=== PATIENT | female | born 2000 | race Caucasian/White ===

== ENCOUNTER 2024-02-08 10:11 | Outpatient (CLI) | payer OTHER, SELFPAY | END 2024-02-08 10:12 | disposition home or self-care (01) | LOC: NFLDREF 02-11 10:13 | PROVIDERS: Visit Provider Physician Assistant | DX: K92.1 Melena (principal) | CPT/HCPCS: 87045; 87046; 87427 ==

== ENCOUNTER 2024-06-30 20:49 | Emergency (ER) | payer OTHER, SELFPAY ==
--- OUTSIDE RECORDS SUMMARY | 2024-06-30 20:51 | XMS_ITS | Encounter Summary ---
Author Organization [facility] Address [address] [place] [address] Care Team Providers Care Crime Laboratory Analyst Name Role Phone Brandy Oakes PA-C Unavailable No Ref-Primary, Physician Primary Care Provider Kenroy Tello MD Unavailable Claudine Whittington PhD Unavailable Encounter Details Date Type Department Care Team ([facility] st Contact Info) Description 03/27/2021 Telephone [facility] Behavioral Health Intake [address] [place] [phone] Generic, Behavioral Intake, Social History Tobacco Use Types Packs/Day Years Used Date Smoking Tobacco: Never Smokeless Tobacco: Never Alcohol Use Standard Drinks/Week Comments No 0 (1 standard drink = 0.6 oz pur e alcohol) PHQ-2 Answer Date Recorded PHQ-2 Score 0 03/30/2021 Comments No Sex and Gender Information Value Date Recorded Sex Assigned at Female 03/26/2021 2:38 PM APPLICATIONS SUPPORT ANALYST Legal Sex Female 7:15 AM CDT Gender Identity Female 03/26/2021 2:38 PM APPLICATIONS SUPPORT ANALYST Sexual Orientation Straight 04/08/2021 8: 40 AM APPLICATIONS SUPPORT ANALYST COVID-19 Exposure Response Date Recorded In the last month, have you been in contact with someone who was confirmed or suspected to have Coronavirus / COVID-19? No / Unsure 03/30/2021 8:42 AM APPLICATIONS SUPPORT ANALYST documented as of this encounter Miscellaneous Notes * Telephone Encounter - Rodriguez Sinclair - 04/08/2021 8:00 AM CST Tried reaching out to patient to check them in for their virtual MH eval today, 04/08/2021 at 0830. Called their mobile number twice, but no answer and their voicemail box is full. Called their home number, their mom answered and said she'll try to wake patient up if chart writer will call patient again. Called patient's mobile number again, but no answer. ICATIONS SUPPORT ANALYST * Telephone Encounter - Yohan Randall - 03/27/2021 8:32 AM CST Pt scheduled MH eval through [employer]. Referral created and benefits requested. ICATIONS SUPPORT ANALYST documented in this encounter Plan of Treatment Not on file documented as of this encounter Visit Diagnoses Not on filedocumented in this encounter Care Teams Crime Laboratory Analyst Relationship Specialty Start Date End Date No Ref-Primary, Physician PCP - General 10/29/20 Brandy Oakes PA-C [address] [place] [address] [address] [place] [facility] [place] [address] Physician Process Inspector Dermatology 10/29/20 Kenroy Tello MD Assigned Surgical Provider 04/05/21 [place] [id number] [place] [address] Assigned Behavioral Health Provider 08/22/21 05/12/23 documented as of this encounter
--- OUTSIDE RECORDS SUMMARY | 2024-06-30 20:51 | XMS_ITS | Clinical Summary ---
Author Organization [facility] Address [address] [place] [address] Care Team Providers Care Meat Lugger Name Role Phone Unavailable Primary Care Provider Unavailabl e Source Comments You are receiving this document as you are listed as the primary care provider,follow-up provider, or the patient has been referred to you for consultation.This is in compliance with the Medicare andMedicaid EHR Incentive Program,which states Providers who transition their patient to another setting of careor provider of care or refers their patient to another provider of care shouldprovide summary care record for each transition of care or referral. [facility] Allergies No known active allergies Medications No known medications Active Problems Problem Noted Date Diagnosed Date Patellofemoral arthralgia of both knees 10/07/19 21 Greater trochanteric bursitis of both hips 10/06 Congenital dysplasia of both hips 10/06/2020 Social History Tobacco Use Types Packs/Day Years Used Date Smoking Tobacco: Never Assessed Comments Unknown Sex and Gender Information Value Date Recorded Sex Assigned at Not on file Legal Sex Female 6:00 AM CDT Gender Identity Not on file Sexual Orientation Not on file Plan of Treatment Health Maintenance Due Date Last Done Comments Cervical Cancer Screening Due 2002 Chlamydia 2002 Hep C Screening (Preventive Services) 2002 MenB Immunization Discussion 2002 HIV Screening (Preventive Services) 2018 HPV Vaccine (2 - 3-dose series) 12/13/2018 11/15/2018 Adult Preventive Visit 02/02/2020 HepB (1) 2021 COVID-19 Vaccine ( season) 2023 07/25/2020, 06/27/2020 Influenza (#1) 2023 01/28/2014 DTaP/Tdap/Td (7 - Tdap) 01/29/2024 01/29/20 14, 08/18/2007, 05/08/2003, Additional history exists Zoster/Shingles (1 of 2) 02/02/2052 Hib Completed 05/08/2003, 01/20, 2002, Additional history exists Pneumococcal Aged Out 08/07/2003, 07/20, 2002, Additional history exists No longer eligible based on patient's age to complete this topic IPV (Polio) Completed 11/21/2007, 07/20, 2002, Additional history exists MCV4 Completed 06/06/2019, 09/17/2014 HepA Aged Out No longer eligi ble based on patient's age to complete this topic Insurance MEDICA
--- OUTSIDE RECORDS SUMMARY | 2024-06-30 20:51 | XMS_ITS | Clinical Summary ---
Author Organization [facility] Address [address] [place] [address] Care Team Providers Care Salvage Engineering Technician Name Role Phone [facility] Primary Care Provider + Allergies Active Allergy Reactions Criticality Noted Date Comments Peanut *Unknown 11/26/2016 Medications clindamycin 1% (CLEOCIN-T) 1 % lotion APPLY TOPICALLY TO FACE IN THE MORNING 1 Active tretinoin (RETIN-A) 0.025 % 0.025 % cream APPLY A PEA-SIZED AMOUNT TO FACE. START EVERY 3 TO 4 DAYS WORKING UP TO EVERY NIGHT 1 Active benzoyl peroxide 5% 5 % external liquid WASH FACE ONCE A DAY IN THE SHOWER 1 Active Ciclopirox 1 % sham APPLY THREE TIMES WEEKLY TO SCALP. LET SIT FOR 5 MINUTES THEN RINSE 2 Active cetirizine (ZYRTEC) 10 mg tablet Take 10 mg by mouth. Active clobetasol 0.05% TOPICAL (TEMOVATE) 0.05 % external solution 2 Active albuterol HFA (PRO-AIR; VENTOLIN; PROVENTIL) 90 mcg/actuation inhaler Inhale 1-2 Puffs by mouth every 4 hours if needed. 3 Each 3 2 Active ondansetron (ZOFRAN) 8 mg tabletIndicatio ns:Lack of appetite Take 1 Tablet (8 mg) by mouth every 8 hours if needed for Nausea/Vomitin g. 30 Tablet 2 Active Active Problems Problem Noted Date Diagnosed Date Mild intermittent asthma without complication Immunizations Immunization Administration Dates Next Due DTaP 08/18/2007, 4,2002,06/05,2002 HIB PRP-T (ActHIB,Hiberix) 05/08/2003,,2002,04/03 HPV 9 (Gardasil 9) 11/15/2018 Hepatitis B (Peds) 2002,2002, 002 Inactivated Polio Vaccine 11/21/2007,,2002,04/03 Influenza,LAIV3 Live Intrana adalgisa (Flumist) 01/28/2014 MENINGOCOCCAL VACCINE 2 VIAL 2MO-55YO (MENVEO) 06/06/2019,09/17/2014 MMR 08/18/2007,02/06/2003 Pneumococcal conj 7-Valent (Prevnar 7) 0 08/07/2003,2002,2002,04/03 Tdap 01/28/2014 Family History Medical History Relation Name Comments Anxiety disorder Father Relation Name Status Comments Father Social History Tobacco Use Types Packs/Day Years Used Date Smoking Tobacco: Never Smokeless Tobacco: Never Tobacco Cessation:Counseling Given: Yes Alcohol Use Standard Drinks/Week Comments Never 0 (1 standard drink = 0.6 oz pur e alcohol) PHQ-2 Answer Date Recorded PHQ-2 TOTAL SCORE 2 02/23/2021 Social Connections Answer Date Recorded Frequency of Communication with Friends and Fami ly Not on file 03/21/2021 Financial Resource Strain Answer Date R ecorded Difficulty of Paying Living Expenses Not on file 03/21/2021 Difficulty of Paying Living Expenses Not on file 03/21/2021 Comments No Sex and Gender Information Value Date Recorded Sex Assigned at Not on file Legal Sex Female 10:43 AM GREENHOUSE GROWER Gender Identity Not on file Sexual Orientation Not on file Obstetrics History Last Filed Vital Signs Vital Sign Reading Time Taken Comments Blood Pressure 112/68 08/19/2021 9:24 AM CDT Pulse 110 08/19/2021 9:24 AM CDT Temperature 38.1 C (100.5 F) 08/19/2021 9:24 AM CDT Respiratory Rate - - Oxygen Saturation 94% 08/19/2021 9:24 AM CDT Inhaled Oxygen Concentration - - Weight 64.8 kg (142 lb 12.8 oz) 08/19/2021 9:24 AM CDT Height 162 cm (5' 3.78) 08/19/2021 9:24 AM CDT Body Mass Index 24.68 08/19/2021 9:24 AM CDT Plan of Treatment Health Maintenance Due Date Last Done Comments HIV for age 15-65 2017 HPV series for age 9-26 (2 - 3-dose series) 12/13/2018 11/15/2018 Hepatitis C screening for age 18-79 02/02/2020 Depression screening for age 12+ 02/23/2022 02/23/2021 BMI (ht and wt on same day) for age 18+ 08/19/2022 08/19/2021 Pap test for age 21-65 2023 COVID-19 vaccine series ( season) 2023 02/09/2021, 07/25/2020, 06/27/2020 Tetanus booster 01/29/2024 01/28/2014 Influenza Vaccine (Season Ended) 2024 01/28/2014 Pneumococcal series for age 6-49 Aged Out 08/07/2003, 2002, 2002, Additional history exists No longer eligible based on patient's age to complete this topic Tdap Completed 01/28/2014 Insurance MEDICA CHOICE Care Teams Salvage Engineering Technician Relationship Specialty Start Date End Date [facility] [address] [place] [address] PCP - General 08/21/21
--- OUTSIDE RECORDS SUMMARY | 2024-06-30 20:51 | XMS_ITS | Clinical Summary ---
Author Organization [facility] Address [address] [place] [address] Care Team Providers Care Optomechanical Engineer Name Role Phone Brandy Oakes PA-C Unavailable No Ref-Primary, Physician Primary Care Provider Allergies Active Allergy Reactions Criticality Noted Date Comments Nuts 11/26/2016 Medications * This document contains information received from the source organization and may not represent a complete record from that organization. albuterol (2.5 MG/3ML) 0.083% neb solution 7 Active PULMICORT FLEXHALER 90 MCG/ACT AEPB 7 Active QVAR 80 MCG/ACT Inhaler 7 Active cetirizine (ZYRTEC) 10 MG tablet Take 10 mg by mouth daily Active tretinoin (RETIN-A) 0.025 % external creamIndication s:Acne vulgaris Apply a pea-sized amount to face. Start every 3-4 nights working up to every night. 45 g 3 1 Active fluocinonide (LIDEX) 0.05 % external solutionIndicat ions:Seborrheic dermatitis Apply to affected area on scalp BID x 4-6 weeks, tapering with improvement. Do not apply to face or body folds. 60 mL 1 Active Additional Information Patient not taking.Reported on 03/30/2021 ketoconazole (NIZORAL) 2 % external shampooIndicati ons:Seborrheic dermatitis,Sebo psoriasis Lather onto scalp in shower daily at let sit for 1-2 minutes before rinsing. 120 mL 11 2 Active Fluocinolone Acetonide Scalp 0.01 % OIL oilIndications: Seborrheic dermatitis,Sebo psoriasis Apply once daily as needed to scalp at nighttime before bed 118 mL 11 2 Active clindamycin (CLEOCIN T) 1 % external lotionIndicatio ns:Acne vulgaris Apply to face in the am. 60 mL 2 Active benzoyl peroxide (BENZOYL PEROXIDE WASH) 5 % external liquidIndicatio ns:Acne vulgaris Wash face once a day in the shower. 226 g 2 Active Active Problems Problem Noted Date Diagnosed Date JASMYNE (generalized anxiety disorder) 04/08/2021 Attention and concentration deficit 04/08/2021 Dermatitis- sclerosis of Lt elbow 11/27/2016 Bug bites, initial encounter: post neck and ant waistline 11/27/2016 Blister of left heel, initial encounter 11/28/19 17 Mild intermittent asthma without complication Immunizations Name Administration Dates Next Due COVID-19 12+ (Pfizer) 12/29/2023,03/09/2023 COVID-19 Bivalent 18+ (Moderna) 03/01/2022 DTAP (<7y) 08/18/2007, 4,2002,06/05,2002 HIB (PRP-T) 05/08/2003, 3,2002,04/03 HPV9 (Gardasil) 11/03/2020,11/15/2018 Hepatitis B, Peds (Engerix-B/Recombivax HB) 2002,2002,2002 Influenza Intranasal Vaccine 01/28/2014 Influenza Vaccine >6 months,quad, PF 03/09/2023, 03/11/2022 MMR (MMRII) 08/18/2007,02/06/2003 Meningococcal ACWY (Menveo ) 06/06/2019,09/17/2014 Meningococcal Mcv4 Conjugate,unspecified 06/06/2019 Pneumococcal (PCV 7) 08/07/2003,08/08/19 03,2002,04/03 Poliovirus, inactivated (IPV) 11/21/2007 ,2002,2002,04/03 TDAP Vaccine (Adacel) 01/28/2014 Varicella (Varivax) 10/31/2009,08/18/2007 Family History Medical History Relation Comments Anxiety Disorder Father Depression Father Unknown/Adopted Father Unknown/Adopted Mother Anesthesia Reaction No family hx of Asthma No family hx of Breast Cancer No family hx of Cerebrovascular Disease No family hx of Colon Cancer No family hx of Coronary Artery Disease No family hx of Diabetes No family hx of Genetic Disorder No family hx of Hyperlipidemia No family hx of Hypertension No family hx of Mental Illness No family hx of Obesity No family hx of Osteoporosis No family hx of Other Cancer No family hx of Prostate Cancer No family hx of Substance Abuse No family hx of Thyroid Disease No family hx of Relation Status Comments Father Alive Mother Alive Social History Tobacco Use Types Packs/Day Years Used Date Smoking Tobacco: Never Smokeless Tobacco: Never Tobacco Cessation:Counseling Given: No Alcohol Use Standard Drinks/Week Comments No 0 (1 standard drink = 0.6 oz pur e alcohol) PHQ-2 Answer Date Recorded PHQ-2 Score 4 11/02/2021 Adolescent Education Answer Date Record ed Getting School Help Needed Not on file 12/10 Comments No Sex and Gender Information Value Date Recorded Sex Assigned at Female 03/26/2021 2:38 PM DIRECTOR OF PRECLINICAL RESEARCH Legal Sex Female 7:15 AM CDT Gender Identity Female 03/26/2021 2:38 PM DIRECTOR OF PRECLINICAL RESEARCH Sexual Orientation Straight 04/08/2021 8: 40 AM DIRECTOR OF PRECLINICAL RESEARCH Last Filed Vital Signs Vital Sign Reading Time Taken Comments Blood Pressure 106/58 10/31/2020 3:03 PM CDT Pulse 103 11/26/2016 4:05 PM CDT Temperature 36.6 C (97.8 F) 11/26/2016 4:05 PM CDT Respiratory Rate 24 11/26/2016 4:05 PM CDT Oxygen Saturation 98% 11/26/2016 4:05 PM CDT Inhaled Oxygen Concentration - - Weight 55.3 kg (122 lb) 11/26/2016 4:05 PM CDT Height 160 cm (5' 3) 11/26/2016 4:05 PM CDT Body Mass Index 21.61 11/26/2016 4:05 PM CDT Plan of Treatment Health Maintenance Due Date Last Done Comments ADVANCE CARE PLANNING 2002 ANNUAL REVIEW OF HM ORDERS 2002 DEPRESSION ACTION PLAN 2002 HIV SCREENING 2017 ASTHMA CONTROL TEST 05/26/2017 11/26/2016 ASTHMA ACTION PLAN 11/26/2017 11/26/2016, 0 11/26/2016, 11/26/2016 MENINGITIS B IMMUNIZATION (1 of 2 - Standard) 2018 HEPATITIS C SCREENING 02/02/2020 HPV IMMUNIZATION (3 - 3-dose series) 01/26/2021 11/03/2020, 11/15/2018 Pneumococcal Vaccine: Pediat rics (0 to 5 Years) and At-Risk Patients (6 to 49 Years) (1 of 2 - PCV) 2021 08/07/2003, 2002, 2002, Additional history exists PHQ-9 05/05/2022 11/02/2021, 07/21, 04/08/2021 INFLUENZA VACCINE (#1) 2023 , 03/11/2022, 01/28/2014 DTAP/TDAP/TD IMMUNIZATION (7 - Td or Tdap) 01/29/2024 01/28/2014, 08/18/2007, 05/08/2003, Additional history exists YEARLY PREVENTIVE VISIT 03/16/2025 03/16/20 24, 09/15/2022, 06/06/2019, Additional history exists PAP 03/16/2027 03/16/2024 ZOSTER IMMUNIZATION (1 of 2) 02/02/2052 HEPATITIS B IMMUNIZATION Completed 003, 2002, 2002 MENINGITIS IMMUNIZATION Completed 06/06/19 20, 06/06/2019, 09/17/2014 COVID-19 Vaccine Completed 12/29/2023, , 03/01/2022, Additional history exists Procedures Procedure Name Priority Date/Time Associated Diagnosis Comments ASTHMA ACTION PLAN Routine 11/26/2016 4:09 PM CDT from Last 3 Months or Most Recently Relevant to Health Maintenance Insurance [employer] VANTAGE PLUS SELF INSURED [employer] V[employer] PLUS SELF INSURED [employer] V[employer]US SELF INSURED [employer] V[employer] [place] [place] [address] Care Teams Optomechanical Engineer Relationship Specialty Start Date End Date No Ref-Primary, Physician PCP - General 10/29/20 Brandy Oakes PA-C [address] [place] [address] [address] [place] [place] [phone] Physician Agricultural Sales Representative Dermatology 10/29/20
--- OUTSIDE RECORDS SUMMARY | 2024-06-30 20:51 | XMS_ITS | Encounter Summary ---
Author Organization [facility] Address [address] [place] [address] Care Team Providers Care Us Marketing Director Name Role Phone Brandy Oakes PA-C Unavailable No Ref-Primary, Physician Primary Care Provider Kenroy Tello MD Unavailable Claudine Whittington PhD Unavailable Encounter Details Date Type Department Care Team ([facility] st Contact Info) Description 11/02/2021 [facility] Medical Advice [facility] Behavioral Health Intake [address] [place] [phone] Sara Pillai Social History Tobacco Use Types Packs/Day Years Used Date Smoking Tobacco: Never Smokeless Tobacco: Never Alcohol Use Standard Drinks/Week Comments No 0 (1 standard drink = 0.6 oz pur e alcohol) PHQ-2 Answer Date Recorded PHQ-2 Score 4 11/02/2021 Comments No Sex and Gender Information Value Date Recorded Sex Assigned at Female 03/26/2021 2:38 PM BALLPOINT PENS ASSEMBLER Legal Sex Female 7:15 AM CDT Gender Identity Female 03/26/2021 2:38 PM BALLPOINT PENS ASSEMBLER Sexual Orientation Straight 04/08/2021 8: 40 AM BALLPOINT PENS ASSEMBLER documented as of this encounter Plan of Treatment Not on file documented as of this encounter Visit Diagnoses Not on filedocumented in this encounter Additional Health Concerns Assessment Noted Time PHQ-9 Depression Total Score: 17 022 8:47 AM CDT documented as of this encounter Care Teams Us Marketing Director Relationship Specialty Start Date End Date No Ref-Primary, Physician PCP - General 10/29/20 Brandy Oakes PA-C [address] [place] [address] [place] [address] Physician Pluck Trimmer Dermatology 10/29/20 Kenroy Tello MD Assigned Surgical Provider 04/05/21 [place] [address] [place] [address] Assigned Behavioral Health Provider 08/22/21 05/12/23 documented as of this encounter
[2024-06-30 21:04] VITALS: BP 124/78; PULSE 109; RESP 16; TEMP 36.6; O2SAT 100; BMI 26.6
[2024-06-30 21:15] LABS: Appearance Urine Clear (Clear); Bilirubin Urine Negative (Negative); Blood Urine Negative (Negative); Color Urine Yellow (Yellow); Glucose Urine Negative (Negative); Ketones Urine Negative (Negative); Leukocyte Esterase Urine Negative (Negative); Nitrite Urine Negative (Negative); Protein Urine Negative (Negative); Specific Gravity Urine 1.015 (1.000-1.030); Urobilinogen Urine 0.2 (0.2-1.0)
[2024-06-30 21:27] LABS: Amorphous Sediment Urine Few; Bacteria Urine Few; RBC Urine 0-2 (0-2); Squamous Epithelial Cell Urine Few (None-Few)
--- NOTE | 2024-06-30 21:29 | ED.ABDPAIN ---
HPI - Abdominal Pain General Date Seen: 06/30/24 Chief Complaint: Abdominal Pain Stated Complaint: Abdominal Time Seen by Provider: 06/30/24 21:08 Source: patient Mode of arrival: ambulatory Limitations: no limitations History of Present Illness HPI narrative: patient is a 24-year-old female presenting to the emergency department for intermittent epigastric pain. She states the symptoms started about 15:00 today and seem to come and go. She states she is currently asymptomatic. When they occur and she states there is sharp pain associated with nausea. She states she will feel very weak during these episodes. Symptoms then resolved and she feels back to normal. No previous abdominal surgeries. Not aware of any sick contacts. Denies fevers or chills. Denies chest pain, shortness of breath, dizziness. States she feels lightheaded during these episodes. had a normal bowel movement about 2 or 3 hours ago she states. Has not had any associated constipation diarrhea. Denies symptoms like this before. Denies dysuria, vaginal discharge, vaginal bleeding. No other concerns noted. Related Data Home Medications ?Medication ?Instructions ?Recorded ?Confirmed duloxetine 40 mg capsule,delayed 40 mg PO DAILY 02/07/24 06/30/24 release guanfacine 1 mg tablet,extended 1 mg PO DAILY 02/07/24 06/30/24 release 24 hr Allergies Allergy/AdvReac Type Severity Reaction Status Date / Time No Known Drug Allergies Allergy Verified 02/07/24 16:03 Review of Systems Status of ROS Reports: 10 or more systems reviewed and unremarkable except as noted in History and below Exam Narrative: Exam Narrative: Const: Well-nourished, Well-developed, in No distress Eyes: PERRL, no conjunctival injection, and symmetrical lids HENT: Atraumatic external nose and ears. Moist mucous membranes. Neck: Symmetric, trachea midline, No thyromegaly. CVS: RRR, No murmurs or gallops. Peripheral pulses 2+ and equal in all extremities RESP: Unlabored respiratory effort. Clear to auscultation bilaterally. GI: Nontender/Nondistended, No rebound or guarding. MSK:Extremities w/o deformity, Normal Active ROM Skin: Warm, Dry. No rashes or lesions. Neuro: Normal Muscle tone, No focal neurological deficits. Psych: Awake, Alert, & Oriented x3. Appropriate mood and affect. Const: Vital Signs, click to edit/add: Vital Signs - 24 hr 06/30/24 21:04 Temperature 98 F Pulse Rate [Pulse Oximeter] 109 H Respiratory Rate 16 Blood Pressure [Ri ght Upper Arm] 124/78 Pulse Oximetry 100 Oxygen Delivery Me thod Room Air Course Vital Signs Vital signs: Initial Vital Signs Temperature 98 F 06/30/24 21:04 Temperature Source Temporal Artery Scan 06/30/24 21:04 Pulse Rate 109 H 06/30/24 21:04 Respiratory Rate 16 06/30/24 21:04 Blood Pressure 124/78 06/30/24 21:04 Blood Pressure Mean 93 06/30/24 21:04 Blood Pressure Position Sitting 06/30/24 21:04 Pulse Oximetry 100 06/30/24 21:04 Oxygen Delivery Method Room Air 06/30/24 21:04 Vital Signs Temperature 98 F 06/30/24 21:04 Pulse Rate 109 H 06/30/24 21:04 Respiratory Rate 16 06/30/24 21:04 Blood Pressure 124/78 06/30/24 21:04 Pulse Oximetry 100 06/30/24 21:04 Oxygen Delivery Method Room Air 06/30/24 21:04 Temperature 98 F 06/30/24 21:04 Pulse Rate 109 H 06/30/24 21:04 Respiratory Rate 16 06/30/24 21:04 Blood Pressure 124/78 06/30/24 21:04 Pulse Oximetry 100 06/30/24 21:04 Oxygen Delivery Method Room Air 06/30/24 21:04 MDM - Abdominal Pain MDM Narrative Medical decision making narrative: patient is a 22-year-old female presenting to the emergency department for abdominal pain. Pain is in epigastric region so differential this time with close gastroenteritis, peptic ulcer disease, pancreatitis. Seems much less likely to be diverticulitis appendicitis due to location of pain. Will check LFTs though for possible liver gallbladder dysfunction. CBC, CMP, lipase, urinalysis, COVID/ flu / RSV, urine test all ordered. She is asymptomatic at this time and medications not necessary. I believe CT scan is necessary as would be unnecessary radiation for patient of this age considering her otherwise benign symptoms currently. lab work returned showing no concerning abnormalities. Patient continues to be asymptomatic. Symptoms are likely related to a gastroenteritis. She is otherwise doing well at this time. I do believe she is safe for discharge I will prescribe her some Zofran be instymeds. She is agreeable to this plan. Lab Data Labs: Lab Results 06/30/24 06/30/24 06/30/24 Range/Units 21:10 22:13 22:24 WBC 11.12 H (4.50-11.00) K/uL RBC 5.41 H (4.00-5.20) m/uL Hgb 13.7 (12.0-16.0) gm/dL Hct 42.5 (33.0-51.0) % MCV 79 L (80-100) fL MCH 25 L (26-34) pg MCHC 32 (32-36) gm/dL RDW Coeff of Denny 13.2 (11.5-15.5) % Plt Count 267 (140-440) K/uL Neut % (Auto) 80.4 H (42.0-72.0) % Lymph % (Auto) 11.5 L (20-44) % Rawlins % (Auto) 7.2 (0.0-11.0) % Eos % (Auto) 0.4 (0.0-7.0) % Baso % (Auto) 0.3 (0.0-3.0) % Neut # (Auto) 8.90 H (1.7-7.0) K/uL Lymph # (Auto) 1.30 (0.90-2.90) K/uL Rawlins # (Auto) 0.80 (0.00-0.90) K/UL Eos # (Auto) 0.00 (0.00-0.50) K/uL Baso # (Auto) 0.00 (0.00-0.30) K/uL Abs Immat Gran (auto) 0.00 (0.00-0.30) K/uL Imm/Tot Granulo (auto) 0.2 % Sodium 139 (135-149) mmol/L Potassium 3.8 (3.6-5.1) mmol/L Chloride 102 (96-114) mmol/L Carbon Dioxide 28 (20-32) mmol/L Anion Gap 9 (7-15) mEq/L BUN 12 (5-24) mg/dL Creatinine 0.7 (0.5-1.5) mg/dL Estimated Creat Clear 104.28 Estimated GFR 125 ml/min Glucose 131 H (60-115) mg/dL Calcium 10.1 (8.4-10.6) mg/dL Total Bilirubin 0.5 (0.1-1.5) mg/dL AST 24 (12-35) U/L ALT 22 (4-35) U/L Alkaline Phosphatase 51 (40-150) U/L Total Protein 8.1 (6.0-8.3) g/dL Albumin 5.0 (3.3-5.0) g/dL Lipase 42 (23-300) U/L Urine Color Yellow (Yellow) Urine Appearance Clear (Clear) Urine pH 6.0 (5.0-8.5) Ur Specific [place] 1.015 (1.000-1.030) Urine Protein Negative (Negative) Urine Glucose (UA) Negative (Negative) Urine Ketones Negative (Negative) Urine Blood Negative (Negative) Urine Nitrite Negative (Negative) Urine Bilirubin Negative (Negative) Urine Urobilinogen 0.2 (0.2-1.0) Ur Leukocyte Esterase Negative (Negative) Urine RBC 0-2 (0-2) Urine WBC 2-5 (0-5) Ur Squamous Epith Cells Few (None-Few) Amorphous Sediment Few A (None) Urine Bacteria Few A (None) Urine HCG, Qual (Negative) SARS-CoV-2 (PCR) Negative SARS-CoV-2 (Negative) Influenza Type A (PCR) Negative PCR FLU A (Negative) Influenza Type B (PCR) Negative PCR FLU B (Negative) RSV (PCR) Negative PCR RSV (Negative) 06/30/24 Range/Units Unknown WBC (4.50-11.00) K/uL RBC (4.00-5.20) m/uL Hgb (12.0-16.0) gm/dL Hct (33.0-51.0) % MCV (80-100) fL MCH (26-34) pg MCHC (32-36) gm/dL RDW Coeff of Denny (11.5-15.5) % Plt Count (140-440) K/uL Neut % (Auto) (42.0-72.0) % Lymph % (Auto) (20-44) % Rawlins % (Auto) (0.0-11.0) % Eos % (Auto) (0.0-7.0) % Baso % (Auto) (0.0-3.0) % Neut # (Auto) (1.7-7.0) K/uL Lymph # (Auto) (0.90-2.90) K/uL Rawlins # (Auto) (0.00-0.90) K/UL Eos # (Auto) (0.00-0.50) K/uL Baso # (Auto) (0.00-0.30) K/uL Abs Immat Gran (auto) (0.00-0.30) K/uL Imm/Tot Granulo (auto) % Sodium (135-149) mmol/L Potassium (3.6-5.1) mmol/L Chloride (96-114) mmol/L Carbon Dioxide (20-32) mmol/L Anion Gap (7-15) mEq/L BUN (5-24) mg/dL Creatinine (0.5-1.5) mg/dL Estimated Creat Clear Estimated GFR ml/min Glucose (60-115) mg/dL Calcium (8.4-10.6) mg/dL Total Bilirubin (0.1-1.5) mg/dL AST (12-35) U/L ALT (4-35) U/L Alkaline Phosphatase (40-150) U/L Total Protein (6.0-8.3) g/dL Albumin (3.3-5.0) g/dL Lipase (23-300) U/L Urine Color (Yellow) Urine Appearance (Clear) Urine pH (5.0-8.5) Ur Specific [place] (1.000-1.030) Urine Protein (Negative) Urine Glucose (UA) (Negative) Urine Ketones (Negative) Urine Blood (Negative) Urine Nitrite (Negative) Urine Bilirubin (Negative) Urine Urobilinogen (0.2-1.0) Ur Leukocyte Esterase (Negative) Urine RBC (0-2) Urine WBC (0-5) Ur Squamous Epith Cells (None-Few) Amorphous Sediment (None) Urine Bacteria (None) Urine HCG, Qual Negative (Negative) SARS-CoV-2 (PCR) (Negative) Influenza Type A (PCR) (Negative) Influenza Type B (PCR) (Negative) RSV (PCR) (Negative) Discharge Plan Discharge Clinical Impression: Gastroenteritis Patient Disposition: Home, Self-Care Condition: Stable Instructions: Gastroenteritis (ED) Additional Instructions: I believe your symptoms are from a gastroenteritis. This is most commonly viral in nature and will resolve on its own the next few days. Use the Zofran as needed for nausea. Take Tylenol for pain. Return to emergency department for new or worsening symptoms. Prescriptions: No Action guanfacine 1 mg tablet extended release 24 hr 1 mg PO DAILY duloxetine 40 mg capsule,delayed release(DR/EC) 40 mg PO DAILY Follow Up/Referrals: Provider,Not a Local [Primary Care Provider] - Stand Alone Forms: [employer] Info Instructions
[2024-06-30 22:19] LABS: Basophils Percent Auto 0.3 % (0.0-3.0); Eosinophils Percent Auto 0.4 % (0.0-7.0); Hematocrit 42.5 % (33.0-51.0); Hemoglobin* 13.7 gm/dL (12.0-16.0); Immature Granulocytes Pct Auto 0.2 %; Lymphocytes Percent Auto 11.5 % (20-44); Mean Corpuscular HGB Conc 32 gm/dL (32-36); Mean Corpuscular Hemoglobin 25 pg (26-34); Mean Corpuscular Volume 79 fL (80-100); Monocytes Percent Auto 7.2 % (0.0-11.0); Neutrophils Percent Auto 80.4 % (42.0-72.0); Platelet Count* 267 K/uL (140-440); RDW Coefficient of Variation % 13.2 % (11.5-15.5); Red Blood Count 5.41 m/uL (4.00-5.20); White Blood Count* 11.12 K/uL (4.50-11.00)
[2024-06-30 22:23] LABS: Slide Review Reflex No
[2024-06-30 22:41] LABS: Chloride* 102 mmol/L (96-114); Potassium* 3.8 mmol/L (3.6-5.1); Sodium* 139 mmol/L (135-149)
[2024-06-30 22:43] LABS: Alanine Aminotransferase* 22 U/L (4-35); Anion Gap 9 mEq/L (7-15); Aspartate Amino Transferase* 24 U/L (12-35); Blood Urea Nitrogen* 12 mg/dL (5-24); Carbon Dioxide* 28 mmol/L (20-32); Creatinine* 0.7 mg/dL (0.5-1.5); Est. Creatinine Clearance* 104.28; Estimated Glomerular Filt Rate 125 ml/min
[2024-06-30 22:44] LABS: Alkaline Phosphatase* 51 U/L (40-150); Bilirubin Total* 0.5 mg/dL (0.1-1.5); Calcium* 10.1 mg/dL (8.4-10.6); Glucose* 131 mg/dL (60-115); Lipase* 42 U/L (23-300); Total Protein* 8.1 g/dL (6.0-8.3)
[2024-06-30 22:46] LABS: Ur HCG Qualitative* Negative (Negative)
--- OUTSIDE RECORDS SUMMARY | 2024-06-30 22:47 | XMS_ITS | Clinical Summary ---
Author Organization [employer] Address [address] [place] [address] Care Team Providers Care Patient Access Registrar Name Role Phone [facility] Primary Care Provider + Allergies Active Allergy [...] on file Legal Sex Female 10:43 AM HAND II CUTTER Gender Identity Not on file Sexual Orientation [...] Completed 01/28/2014 Insurance [employer] Care Teams Patient Access Registrar Relationship Specialty Start Date End Date [facility] [address] [place] [address] PCP - General 08/21/21
--- OUTSIDE RECORDS SUMMARY | 2024-06-30 22:47 | XMS_ITS | Encounter Summary ---
Author Organization [facility] Address [address] [place] [address] Care Team Providers Care Crm Marketing Executive Name Role Phone Brandy Oakes PA-C Unavailable [phone] No Ref-Primary, Physician Primary Care Provider Kenroy Tello MD Unavailable Claudine Whittington PhD Unavailable Encounter Details Date Type Department Care Team ([facility] st Contact Info) Description 03/27/2021 Telephone [facility] Behavioral Health Intake [address] [place] [phone] Generic, Behavioral Intake, Social History Tobacco Use Types Packs/Day Years Used Date Smoking Tobacco: Never Smokeless Tobacco: Never Alcohol Use Standard Drinks/Week Comments No 0 (1 standard drink = 0.6 oz pur e alcohol) PHQ-2 Answer Date Recorded PHQ-2 Score 0 03/30/2021 Comments No Sex and Gender Information Value Date Recorded Sex Assigned at Female 03/26/2021 2:38 PM SHOEMAKING CUTTER Legal Sex Female 7:15 AM CDT Gender Identity Female 03/26/2021 2:38 PM SHOEMAKING CUTTER Sexual Orientation Straight 04/08/2021 8: 40 AM SHOEMAKING CUTTER COVID-19 Exposure Response Date Recorded In the last month, have you been in contact with someone who was confirmed or suspected to have Coronavirus / COVID-19? No / Unsure 03/30/2021 8:42 AM SHOEMAKING CUTTER documented as of this encounter Miscellaneous Notes [...] she'll try to wake patient up if medical writer will call patient again. Called patient's mobile number again, but no answer. MAKING CUTTER * Telephone Encounter - Yohan Randall - 03/27/2021 8:32 AM CST Pt scheduled MH eval through [facility]. Referral created and benefits requested. MAKING CUTTER documented in this encounter Plan of Treatment Not on file documented as of this encounter Visit Diagnoses Not on filedocumented in this encounter Care Teams Crm Marketing Executive Relationship Specialty Start Date End Date No Ref-Primary, Physician PCP - General 10/29/20 Brandy Oakes PA-C [address] [place] [address] [address] [facility] [place] [address] Physician [facility] 10/29/20 Kenroy Tello MD Assigned Surgical Provider 04/05/21 [place] [address] [place] [address] Assigned Behavioral Health Provider 08/22/21 05/12/23 documented as of this encounter
--- OUTSIDE RECORDS SUMMARY | 2024-06-30 22:47 | XMS_ITS | Clinical Summary ---
Author Organization [facility] Address [address] [place] [address] Care Team Providers Care Manager Hospice Name Role Phone Brandy Oakes PA-C Unavailable [phone] No Ref-Primary, Physician Primary Care Provider Allergies [...] Sex Assigned at Female 03/26/2021 2:38 PM FINAL BLOCK PRESS OPERATOR Legal Sex Female 7:15 AM CDT Gender Identity Female 03/26/2021 2:38 PM FINAL BLOCK PRESS OPERATOR Sexual Orientation Straight 04/08/2021 8: 40 AM FINAL BLOCK PRESS OPERATOR Last Filed Vital Signs Vital Sign Reading [...] SELF INSURED [employer] V[employer] PLUS SELF [place]URED [place] [address] Care Teams Manager Hospice Relationship Specialty Start Date End Date No Ref-Primary, Physician PCP - General 10/29/20 Brandy Oakes PA-C [address] [place] [address] [address] [place] [phone] Physician Lead Nuclear Medicine Technologist Dermatology 10/29/20
--- OUTSIDE RECORDS SUMMARY | 2024-06-30 22:47 | XMS_ITS | Encounter Summary ---
Author Organization [facility] Address [address] [place] [address] Care Team Providers Care Oil Processing Technician Name Role Phone Brandy Oakes PA-C Unavailable No Ref-Primary, Physician Primary Care Provider Kenroy Tello MD Unavailable Claudine Whittington PhD Unavailable Encounter Details Date Type Department Care Team ([facility] st Contact Info) Description 11/02/2021 [facility] Behavioral Health Intake [address] [place] [phone] Sara Pillai Social History Tobacco Use Types Packs/Day Years Used Date Smoking Tobacco: Never Smokeless Tobacco: Never Alcohol Use Standard Drinks/Week Comments No 0 (1 standard drink = 0.6 oz pur e alcohol) PHQ-2 Answer Date Recorded PHQ-2 Score 4 11/02/2021 Comments No Sex and Gender Information Value Date Recorded Sex Assigned at Female 03/26/2021 2:38 PM FOIL WRAPPER Legal Sex Female 7:15 AM CDT Gender Identity Female 03/26/2021 2:38 PM FOIL WRAPPER Sexual Orientation Straight 04/08/2021 8: 40 AM FOIL WRAPPER documented as of this encounter Plan of Treatment Not on file documented as of this encounter Visit Diagnoses Not on filedocumented in this encounter Additional Health Concerns Assessment Noted Time PHQ-9 Depression Total Score: 17 022 8:47 AM CDT documented as of this encounter Care Teams Oil Processing Technician Relationship Specialty Start Date End Date No Ref-Primary, Physician PCP - General 10/29/20 Brandy Oakes PA-C [address] [place] [address] [place] [address] Physician Shift Supervisor Rn Dermatology 10/29/20 Kenroy Tello MD Assigned Surgical Provider 04/05/21 [place] [address] [place] [address] Assigned Behavioral Health Provider 08/22/21 05/12/23 documented as of this encounter
--- OUTSIDE RECORDS SUMMARY | 2024-06-30 22:47 | XMS_ITS | Clinical Summary ---
Author Organization [facility] Address [address] [place] [address] Care Team Providers Care Elder Assistant Name Role Phone Unavailable Primary Care Provider [...] for each transition of care or referral. [facility] Allergies No known active allergies Medications No [...]
[2024-06-30 23:11] LABS: PCR FLU A Negative PCR FLU A (Negative); PCR FLU B Negative PCR FLU B (Negative); PCR RSV Negative PCR RSV (Negative); SARS PCR* Negative SARS-CoV-2 (Negative)
== END 2024-06-30 23:28 | disposition home or self-care (01) ==
PROVIDERS: Emergency Provider Student in an Organized Health Care Education/Training Program
DX: K52.9 Noninfective gastroenteritis and colitis, unspecified (principal)
CPT/HCPCS: 36415; 80053; 81001; 81025; 83690; 85025; 87086; 87631; 99283; 99284